=== PATIENT | female | born 1945 | race Caucasian/White ===

== ENCOUNTER 2016-05-30 11:01 | Outpatient (CLI) | payer MEDICARE ==
[~2016-05-30] VITALS: Ht 162.6 cm; Wt 72.6 kg
[~2016-05-30 11:01] MED LIST: ATIVAN0.5 MG PO; EXCEDRIN CAPLET1 TAB PO; SLOW RELEASE I160 MG PO; VITAMIN D2000 UNIT PO; ZANTAC150 MG PO
[2016-05-30 11:58] VITALS: Ht 162.6 cm; Wt 72.6 kg
--- NOTE | 2016-05-30 12:33 | NUR ---
1135-22G ANGIOCATH SITED TO [facility] PER GABY GUO RN FOR RECLAST INFUSION. 1140-RECLAST STARTED VIA PUMP. 1211-INFUSION COMPLETED, IV D/C. 1225-DISCHARGE NSTRUCTIONS REVIEWED.
== END 2016-05-30 12:30 | disposition home or self-care (01) ==
LOC: D.OPS 11:01
DX: M81.0 Age-related osteoporosis without current pathological fracture (principal)